=== PATIENT | male | born 1985 | race African-American/Black ===

== ENCOUNTER 2018-07-19 12:11 | Emergency (ER) | payer SELFPAY ==
[~2018-07-19] VITALS: Ht 185.4 cm; Wt 79.4 kg
--- NOTE | 2018-07-19 12:32 | NUR ---
BIB SELF, FOR STABBING LIKE INTERMITTENT L SIDED CHEST PAIN X 1 MONTH, WAS AT URGENT CARE AND ADVISED TO GO TO ED FOR ABNORMAL EKG, TO ER BED 1, HOOKED TO MONITOR, AWAITING MD QUIÑONEZ
--- NOTE | 2018-07-19 12:41 | NUR ---
[employer] SUPERVISOR DEGRASSE AT BEDSIDE
--- NOTE | 2018-07-19 12:57 | NUR ---
CUSTODIAL ENGINEER AT BEDSIDE
[2018-07-19 13:14] LABS: BASOPHILS % (AUTO) 0.5 % (0.0-2.0); EOSINOPHILS % (AUTO) 2.6 % (0.0-6.0); HEMATOCRIT 46 % (39-51); HEMOGLOBIN 15.2 g/dL (13.5-17.5); LYMPHOCYTES # (AUTO) 1.1 /CMM (0.8-4.8); LYMPHOCYTES % (AUTO) 28.2 % (20.0-44.0); MEAN CORPUSCULAR HGB CONC 33 g/dl (31.0-36.0); MEAN CORPUSCULAR VOLUME 87 fL (80-96); MONOCYTES # (AUTO) 0.4 /CMM (0.1-1.30); MONOCYTES % (AUTO) 9.3 % (2.0-12.0); NEUTROPHILS # (AUTO) 2.3 /CMM (1.8-8.9); NEUTROPHILS % (AUTO) 59.4 % (43.0-81.0); PLATELET COUNT (AUTO) 181 /CMM (150-450); RED BLOOD CELL COUNT(AUTO) 5.32 MIL/uL (4.5-6.0); WHITE BLOOD COUNT (AUTO) 3.9 K/uL (4.3-11.0)
[2018-07-19 13:30] LABS: CALCIUM, SERUM 9.6 mg/dL (8.5-10.1); CARBON DIOXIDE 31 mmol/L (21-32); CHLORIDE 104 mmol/L (98-107); GLUCOSE 85 mg/dL (74-106); POTASSIUM 4.7 mmol/L (3.5-5.1); SODIUM SERUM 142 mmol/L (136-145); UREA NITROGEN, BLOOD 11 mg/dL (7-18)
[2018-07-19 13:36] LABS: ALANINE AMINOTRANSFERASE 43 U/L (12-78); ALBUMIN 4.6 g/dL (3.4-5.0); ALKALINE PHOSPHATASE 84 U/L (46-116); ASPARTATE AMINOTRANSFERASE 27 U/L (15-37); BILIRUBIN,DIRECT 0.2 mg/dL (0.0-0.2); BILIRUBIN,TOTAL 0.7 mg/dL (0.2-1.0); TOTAL PROTEIN, SERUM 8.5 g/dL (6.4-8.2)
--- NOTE | 2018-07-19 14:16 | NUR ---
Patient discharged to home in stable condition. Written and verbal after care instructions given. Patient verbalizes understanding of instruction. IV removed. Catheter intact and site benign. Pressure and 4x4 applied to site. No bleeding noted.
[2018-07-19 14:18] VITALS: BP 128/68
== END 2018-07-19 14:18 | disposition home or self-care (01) ==
LOC: ER 12:13
DX: R07.89 Other chest pain (principal)
CPT/HCPCS: 36415; 71045-TC; 80048-TC; 80076-TC; 84484-TC; 85025-TC

== ENCOUNTER 2020-12-16 23:33 | Emergency (ER) | payer MEDICAID ==
[~2020-12-16] VITALS: Ht 185.4 cm; Wt 79.4 kg
[2020-12-16 23:33] VITALS: BP 115/74
[2020-12-17] MEDS ORDERED: IBUP-1957 PO (01:43)
[2020-12-17] MEDS ORDERED: CLIN300C3 PO (01:43)
== END 2020-12-17 01:45 | disposition home or self-care (01) ==
LOC: ER 23:33
DX: K08.89 Other specified disorders of teeth and supporting structures (principal); Z79.899 Other long term (current) drug therapy